=== PATIENT | male | born 1935 | race Caucasian/White ===

== ENCOUNTER 2016-10-10 08:24 | Outpatient (CLI) | payer OTHER ==
[2016-09-04 03:47] VITALS: BMI 26.7
[2016-10-10 13:03] LABS: BASOPHILS # (AUTO) 0.1 K/uL (0-0.2); BASOPHILS % (AUTO) 0.7 % (0.0-3.0); EOSINOPHILS # (AUTO) 0.1 K/ul (0.0-0.7); EOSINOPHILS % (AUTO) 1.5 % (0.0-7.0); HEMATOCRIT 40.6 % (42.0-52.0); HEMOGLOBIN 13.4 g/dl (14.0-18.0); IMMATURE GRANULOCYTE % (AUTO) 0.7 % (0.0-5.0); LYMPHOCYTES # (AUTO) 1.9 K/uL (0.60-3.4); LYMPHOCYTES % (AUTO) 28.1 (10.0-50.0); MEAN CORPUSCULAR HEMOGLOBIN 31.2 pg (27.0-31.0); MEAN CORPUSCULAR VOLUME 94.6 fl (80.0-94.0); MONOCYTES # (AUTO) 0.6 K/uL (0.4-2.0); MONOCYTES % (AUTO) 8.2 (0-10); NEUTROPHILS # (AUTO) 4.2 K/ul (2.0-6.9); NEUTROPHILS % (AUTO) 60.8; PLATELET COUNT 150 10^3/uL (140-440); RED BLOOD COUNT 4.29 10^6/ul (4.70-6.10); WHITE BLOOD COUNT 6.86 K/ul (4.2-10.2)
[2016-10-10 13:09] LABS: BILIRUBIN,URINE Negative (NEGATIVE); KETONES,URINE Negative (NEGATIVE); LEUKOCYTE ESTERASE ,URINE Negative (NEGATIVE); NITRITE,URINE Negative (NEGATIVE); PROTEIN,URINE Trace (NEGATIVE); URINE, BLOOD Negative (NEGATIVE)
[2016-10-10 13:15] LABS: ADD URINE MICROSCOPIC YES
[2016-10-10 13:16] LABS: ALBUMIN 3.7 g/dL (3.4-5.0); ALBUMIN/GLOBULIN RATIO 0.88; ANION GAP 15.6; BILIRUBIN,TOTAL 1.02 mg/dL (0.00-1.20); CHOL/HDL RATIO 5.2 (4.5-6.4); CREATININE 1.9 mg/dL (0.60-1.10); POTASSIUM 4.6 mmol/L (3.5-5.1); TOTAL PROTEIN 7.9 g/dL (5.8-8.1)
== END 2016-10-10 08:25 | disposition home or self-care (01) ==
LOC: LAB 08:24
PROVIDERS: ATTEND General Practice
DX: E11.9 Type 2 diabetes mellitus without complications (principal); I10 Essential (primary) hypertension; I50.9 Heart failure, unspecified; D64.9 Anemia, unspecified; Z79.899 Other long term (current) drug therapy
CPT/HCPCS: 36415; 80053; 80061; 81001; 83036; 85025

== ENCOUNTER 2016-12-08 07:47 | Inpatient (IN) | payer OTHER ==
--- NOTE | 2016-12-08 07:56 | ED.PDOC ---
General ED Provider: Dr. LAZARO QUINONES JR Chief Complaint: Respiratory Complaint Stated Complaint: STATES HE IS MORE SHORT OF BREATH AT NIGHT. STATES HE HAS HAD A "HACKY COUGH" AND WAS TOLD BY HIS KIDNEY DOCTOR THAT IT WAS LISINOPRIL AND THEY CHANGED IT TO [place].[ End ]97.8 58 16 95%. worse lying flat Time Seen by Physician: 07:56 Mode of Arrival: Walk-In Information Source: Patient Exam Limitations: No limitations Primary Care [facility] Nursing and Triage Documentation Reviewed and Agree: No Review of Systems - Review Of Systems Constitutional: Reports: No symptoms Eyes: Reports: No symptoms Ears, Nose, Mouth, Throat: Reports: No symptoms Respiratory: Reports: Cough, Orthopnea Cardiac: Reports: No symptoms, Edema (chronic mild note injury right medial ankle is remote) GI: Reports: No symptoms : Reports: No symptoms Musculoskeletal: Reports: No symptoms Skin: Reports: No symptoms Neurological: Reports: No symptoms Endocrine: Reports: No symptoms Hematologic/Lymphatic: Reports: No symptoms All Other Systems: Other Past Medical History - Past Medical History Previously Healthy: No Endocrine: Reports: Dyslipidemia Cardiovascular: Reports: CAD, Hypertension Respiratory: Reports: None Hematological: Reports: Anemia Gastrointestinal: Reports: GERD Genitourinary: Reports: CKD Neuro/Psych: Reports: None Musculoskeletal: Reports: None Cancer: Reports: None - Surgical History General Surgical History: Reports: None, Other (cataract) - Family History Family History: Reports: None - Social History Smoking Status: Never smoker Hx Substance Use: No Alcohol Screening: None Physical Exam - Physical Exam Appearance: Well-appearing, No pain distress, Well-nourished Ill-appearing: Mild Pain Distress: Mild Eyes: JO, EOMI, Conjunctiva clear ENT: Ears normal, Nose normal, Oropharynx normal Neck: Supple Respiratory: Airway patent, Crackles (rigth >left ) Cardiovascular: RRR, Pulses normal, No rub, No murmur GI/: Soft, Nontender, No masses, Bowel sounds normal, No Organomegaly Musculoskeletal: Normal strength, ROM intact, No edema, No calf tenderness Skin: Warm, Dry, Normal color Neurological: Sensation intact, Motor intact, Reflexes intact, Cranial nerves intact, Alert, Oriented Psychiatric: Affect appropriate, Mood appropriate Physician Notification - Case Discussed Physician Notified: Brittney Time of Notification: 09:56 (admit) Critical Care Note - Critical Care Note Total Time (mins): 0 Course - Course Hematology/Chemistry: 12/08/16 08:45 Orders, Labs, Meds: Lab Review 12/08/16 12/08/16 08:40 08:45 WBC 5.58 RBC 4.43 L Hgb 13.5 L Hct 41.9 L MCV 94.6 H MCH 30.5 MCHC 32.2 RDW Coeff of Anel 14.2 Plt Count 139 L Immature Gran % (Auto) 0.4 Neut % (Auto) 65.0 Lymph % (Auto) 25.1 Yell % (Auto) 7.9 Eos % (Auto) 1.1 Baso % (Auto) 0.5 Immature Gran # (Auto) 0.0 Neut # 3.6 Lymph # 1.4 Yell # 0.4 Eos # 0.1 Baso # 0.0 B-Natriuretic Peptide 1610 H Orders Category Date Time Status ADMIT PATIENT INPATIENT .TO [facility] (MONITORED BED) ADMISSION 12/08/16 09: 59 Active EKG-(ED ONLY) Stat CARDIO 12/08/16 07:54 Completed EKG-(IP & OP ONLY) DAILY CARDIO 12/09/16 06:00 Ordered EKG-(IP & OP ONLY) DAILY CARDIO 12/10/16 06:00 Ordered EKG-(IP & OP ONLY) DAILY CARDIO 12/11/16 06:00 Ordered ACTIVITY .Early Mobilization for VTE Prevention CARE 12/08/16 09:59 Active INTAKE & OUTPUT Q8HR CARE 12/08/16 09:59 Active TELEMETRY MONITORING TELE CARE 12/08/16 10:00 Active VITAL SIGNS Q4HR CARE 12/08/16 09:59 Active CARDIAC DIET DIETARY 12/08/16 Lunch Ordered ED RECREATIONAL ASSISTANT APPLIED .ONCE EMERGENCY 12/08/16 07:54 Active ED IV/MEDIPORT/POWERPORT .ONCE EMERGENCY 12/08/16 09:58 Active B-TYPE NATRIURETIC PEPTIDE Stat LAB 12/08/16 08:40 Completed BLOOD CULTURE Stat LAB 12/08/16 07:55 Ordered BLOOD CULTURE Stat LAB 12/08/16 09:58 Ordered CBC W/ AUTO DIFF DAILY@0600 LAB 12/09/16 06:00 Ordered CBC W/ AUTO DIFF DAILY@0600 LAB 12/10/16 06:00 Ordered CBC W/ AUTO DIFF DAILY@0600 LAB 12/11/16 06:00 Ordered CBC W/ AUTO DIFF DAILY@0600 LAB 12/12/16 06:00 Ordered CBC W/ AUTO DIFF DAILY@0600 LAB 12/13/16 06:00 Ordered CBC W/ AUTO DIFF DAILY@0600 LAB 12/14/16 06:00 Ordered CBC W/ AUTO DIFF DAILY@0600 LAB 12/15/16 06:00 Ordered CBC W/ AUTO DIFF DAILY@0600 LAB 12/16/16 06:00 Ordered CBC W/ AUTO DIFF DAILY@0600 LAB 12/17/16 06:00 Ordered CBC W/ AUTO DIFF DAILY@0600 LAB 12/18/16 06:00 Ordered CBC W/ AUTO DIFF DAILY@0600 LAB 12/19/16 06:00 Ordered CBC W/ AUTO DIFF DAILY@0600 LAB 12/20/16 06:00 Ordered CBC W/ AUTO DIFF DAILY@0600 LAB 12/21/16 06:00 Ordered CBC W/ AUTO DIFF DAILY@0600 LAB 12/22/16 06:00 Ordered CBC W/ AUTO DIFF DAILY@0600 LAB 12/23/16 06:00 Ordered CBC W/ AUTO DIFF DAILY@0600 LAB 12/24/16 06:00 Ordered CBC W/ AUTO DIFF DAILY@0600 LAB 12/25/16 06:00 Ordered CBC W/ AUTO DIFF DAILY@0600 LAB 12/26/16 06:00 Ordered CBC W/ AUTO DIFF DAILY@0600 LAB 12/27/16 06:00 Ordered CBC W/ AUTO DIFF DAILY@0600 LAB 12/28/16 06:00 Ordered CBC W/ AUTO DIFF Stat LAB 12/08/16 08:45 Completed COMPREHENSIVE METABOLIC PANEL Stat LAB 12/08/16 08:40 Received CREATINE KINASE Q8H LAB 12/08/16 16:15 Ordered CREATINE KINASE Q8H LAB 12/09/16 00:15 Ordered CREATINE KINASE Stat LAB 12/08/16 08:40 Received D-DIMER Stat LAB 12/08/16 Ordered SPUTUM CULTURE Stat LAB 12/08/16 09:58 Uncollected TROPONIN I Q8H LAB 12/08/16 16:15 Ordered TROPONIN I Q8H LAB 12/09/16 00:15 Ordered TROPONIN I Stat LAB 12/08/16 08:40 Received 0.9 % Sodium Chloride [Saline Flush] MEDS 12/08/16 09:58 Ordered 1 syr IVF PRN PRN Acetaminophen [Tylenol] MEDS 12/08/16 09:59 Ordered 650 mg PO Q4H PRN Ceftriaxone Sodium [Rocephin] 1 gm MEDS 12/08/16 09:58 Active 0.9 % Sodium Chloride [Sodium Chloride] 100 ml IV ONCE Ceftriaxone Sodium [Rocephin] 1 gm MEDS 12/09/16 09:00 Ordered 0.9 % Sodium Chloride [Sodium Chloride] 50 ml IV DAILY Sodium Chloride 0.9% [Sodium Chloride] 1,000 ml MEDS 12/08/16 10:00 Ordered IV 75 mls/hr Spironolactone [Aldactone] MEDS 12/08/16 09:58 Discontinued 25 mg PO ONCE STA RESUSCITATION STATUS Routine OTHERS 12/08/16 09:59 Ordered CHEST, 2 VIEWS PA & LAT Stat RADS 12/08/16 07:55 Completed Medications Generic Name Dose Route Start Last Admin Trade Name Freq PRN Reason Stop Dose Admin Acetaminophen 650 mg 12/08/16 09:59 Tylenol PO Q4H PRN Mild Pain Ceftriaxone Sodium 1 gm/ 100 mls @ 100 mls/hr 12/08/16 09:58 Sodium Chloride IV 12/08/16 10:57 ONCE STA Ceftriaxone Sodium 1 gm/ 50 mls @ 75 mls/hr 12/09/16 09:00 Sodium Chloride IV DAILY MERY Sodium Chloride 1,000 mls @ 75 mls/hr 12/08/16 10:00 Sodium Chloride IV .[id number] MERY Sodium Chloride 1 syr 12/08/16 09:58 Saline Flush IVF PRN PRN To flush IV Discontinued Medications Generic Name Dose Route Start Last Admin Trade Name Freq PRN Reason Stop Dose Admin Spironolactone 25 mg 12/08/16 09:58 Aldactone PO 12/08/16 09:59 ONCE STA Vital Signs: Temp Pulse Resp BP Pulse Ox 12/08/16 07:47 97.8 F 58 L 16 112/80 95 Departure - Departure Time of Disposition: 10:03 Disposition: ADMITTED INPATIENT Discharge Problem: Stage 2 chronic kidney disease, Orthopnea Pneumonia Qualifiers: Pneumonia type: due to unspecified organism Laterality: right Lung location: lower lobe of lung Qualifier Code: (J18.1) Lobar pneumonia, unspecified organism Congestive heart failure Qualifiers: Congestive heart failure type: unspecified congestive heart failure type Congestive heart failure chronicity: chronic Qualifier Code: (I50.9) Heart failure, unspecified Condition: Stable Pt referred to PMD for follow-up: Yes Allergies/Adverse Reactions: Allergies No Known Allergies Allergy (Verified 09/04/16 03:44) Home Medications: Ambulatory Orders Cyanocobalamin/Folic Acid [Vitamin A90-Vfcev Acid Tablet] 1 each PO DAILY Ergocalciferol (Vitamin D2) [Vitamin D2] 50,000 unit PO MONTHLY 10/23/13 Apixaban [Eliquis] 5 mg PO BID 09/04/16 Hydrochlorothiazide 12.5 mg PO DAILY 09/04/16 Aspirin 81 mg PO ONCE 10/17/16 Losartan Potassium 100 mg PO DAILY 12/08/16
--- NOTE | 2016-12-08 08:29 | DI ---
Examination: Three radiographic images of the chest. Comparison: None available. Reason for study: Cough. FINDINGS: Developing air space opacities in the right lower lobe. No pneumothorax. The cardiac si lhouette is not enlarged. Layering density in the right lung bases consistent with a small pleural effusion. Impression: Imaging findings are consistent with a right-sided pneumonia and a small pleural effusi on.
[2016-12-08 09:08] LABS: BASOPHILS % (AUTO) 0.5 % (0.0-3.0); EOSINOPHILS # (AUTO) 0.1 K/ul (0.0-0.7); EOSINOPHILS % (AUTO) 1.1 % (0.0-7.0); HEMATOCRIT 41.9 % (42.0-52.0); HEMOGLOBIN 13.5 g/dl (14.0-18.0); IMMATURE GRANULOCYTE % (AUTO) 0.4 % (0.0-5.0); LYMPHOCYTES # (AUTO) 1.4 K/uL (0.60-3.4); LYMPHOCYTES % (AUTO) 25.1 (10.0-50.0); MEAN CORPUSCULAR HEMOGLOBIN 30.5 pg (27.0-31.0); MEAN CORPUSCULAR HGB CONC 32.2 (31.8-35.4); MEAN CORPUSCULAR VOLUME 94.6 fl (80.0-94.0); MONOCYTES # (AUTO) 0.4 K/uL (0.4-2.0); MONOCYTES % (AUTO) 7.9 (0-10); NEUTROPHILS # (AUTO) 3.6 K/ul (2.0-6.9); PLATELET COUNT 139 10^3/uL (140-440); RED BLOOD COUNT 4.43 10^6/ul (4.70-6.10); WHITE BLOOD COUNT 5.58 K/ul (4.2-10.2)
[2016-12-08 09:54] LABS: ALBUMIN 3.9 g/dL (3.4-5.0); ALBUMIN/GLOBULIN RATIO 0.98; ANION GAP 15.1; BILIRUBIN,TOTAL 0.74 mg/dL (0.00-1.20); BUN/CREATININE RATIO 11.47; CALCIUM 9.9 mg/dL (8.2-10.2); CREATININE 2.44 mg/dL (0.60-1.10); POTASSIUM 4.1 mmol/L (3.5-5.1); TOTAL PROTEIN 7.9 g/dL (5.8-8.1); TROPONIN I 0.117 ng/ml (0.0000-0.4000)
[2016-12-08] MEDS ORDERED: ROCEPHIN 1 GM in SODIUM CHLORIDE 100 ML IV STA (09:58)
[2016-12-08] MEDS ORDERED: ALDACTONE PO STA (09:58)
[2016-12-08] MEDS ORDERED: TYLENOL PO PRN (09:59)
[2016-12-08] MEDS ORDERED: SODIUM CHLORIDE 1,000 ML IV SCH (10:00)
[2016-12-08 10:08] LABS: CREATINE KINASE MB 6.1 ng/ml (0.0-3.6)
[2016-12-08] MEDS ORDERED: ROCEPHIN ONE (10:12)
[2016-12-08 11:41] VITALS: BMI 26.2
[2016-12-08] MEDS ORDERED: NON-FORMULARY MEDICATION (Fluticasone Propionate [Flonase Allergy Relief] 9.9 ML) NS PRN (12:43)
[2016-12-08] MEDS ORDERED: NON-FORMULARY MEDICATION (Hydrochlorothiazide [Hydrochlorothiazide] 12.5 MG) PO SCH ×22 (12:45)
[2016-12-08] MEDS ORDERED: NON-FORMULARY MEDICATION (Amlodipine Besylate [Amlodipine Besylate] 2.5 MG) PO SCH ×22 (12:45)
[2016-12-08] MEDS ORDERED: NON-FORMULARY MEDICATION (Losartan Potassium [Losartan Potassium] 100 MG) PO SCH ×22 (12:45)
[2016-12-08] MEDS ORDERED: ASPIRIN CHEWABLE PO SCH (13:00)
[2016-12-08] MEDS ORDERED: LASIX IVP STA (13:23)
[2016-12-08] MEDS ORDERED: DECADRON 4 MG/ML SDV IM STA (13:23)
[2016-12-08] MEDS: TRADJENTA PO SCH (14:04)
[2016-12-08] MEDS: POTASSIUM CHLORIDE 20 MEQ VIAL-ADDITIVE ONLY 20 MEQ, INFUVITE ADULT 10 ML in SODIUM CHL... IV SCH (14:34)
[2016-12-08] MEDS: NORVASC PO SCH (14:34)
[2016-12-08] MEDS: ASPIRIN CHEWABLE PO SCH (14:36)
[2016-12-08] MEDS ORDERED: COZAAR PO ONE (14:48)
[2016-12-08 16:22] LABS: TROPONIN I 0.111 ng/ml (0.0000-0.4000)
[2016-12-08 16:23] LABS: CREATINE KINASE MB 4.7 ng/ml (0.0-3.6)
--- NOTE | 2016-12-08 16:39 | CT ---
EXAM: CT chest without contrast HISTORY: Abnormal chest radiograph COMPARISON: Chest radiograph 12/08/2016 TECHNIQUE: CT chest performed without intravenous contrast. Coronal and sagittal reformatted image s obtained FINDINGS: Thyroid and thoracic inlet appear normal. Heart is moderately enlarged. There are coron cookie calcifications. No pericardial effusion. Aorta normal in caliber. Atherosclerosis. Small hia josh hernia. Evaluation for lymphadenopathy limited without contrast. No lymphadenopathy identified . There is left renal atrophy. Visualized portion upper abdomen demonstrates no acute abnormality. No acute abnormalities of the bones. Degenerative change in the spine. Central airway patent. S mall to moderate bilateral pleural effusions, right greater than left. There are bibasilar ground-g lass infiltrates and atelectasis seen in the right middle lobe, lingula and bilateral lower lobes. IMPRESSION: 1. Cardiomegaly. Small to moderate bilateral pleural effusions. Bibasilar ground-glass infiltrate s may represent pneumonia and/or dependent edema. 2. Left renal atrophy.
[2016-12-08] MEDS: ELIQUIS PO SCH (20:56)
[2016-12-08] MEDS: FLONASE NAS SCH (20:56)
[2016-12-09 01:11] LABS: TROPONIN I 0.106 ng/ml (0.0000-0.4000)
[2016-12-09] MEDS ORDERED: INFUVITE ADULT IV ONE (01:11)
[2016-12-09] MEDS ORDERED: POTASSIUM CHLORIDE 20 MEQ VIAL-ADDITIVE ONLY IV ONE (01:11)
[2016-12-09] MEDS: POTASSIUM CHLORIDE 20 MEQ VIAL-ADDITIVE ONLY 20 MEQ, INFUVITE ADULT 10 ML in SODIUM CHL... IV SCH ×2 (01:52→15:18)
[2016-12-09 05:06] LABS: BASOPHILS % (AUTO) 0.3 % (0.0-3.0); EOSINOPHILS % (AUTO) 0.1 % (0.0-7.0); HEMATOCRIT 40.3 % (42.0-52.0); HEMOGLOBIN 13.3 g/dl (14.0-18.0); IMMATURE GRANULOCYTE % (AUTO) 0.3 % (0.0-5.0); LYMPHOCYTES # (AUTO) 1.8 K/uL (0.60-3.4); LYMPHOCYTES % (AUTO) 25.8 (10.0-50.0); MEAN CORPUSCULAR HEMOGLOBIN 30.9 pg (27.0-31.0); MEAN CORPUSCULAR VOLUME 93.7 fl (80.0-94.0); MONOCYTES # (AUTO) 0.6 K/uL (0.4-2.0); MONOCYTES % (AUTO) 8.1 (0-10); NEUTROPHILS # (AUTO) 4.6 K/ul (2.0-6.9); NEUTROPHILS % (AUTO) 65.4; PLATELET COUNT 132 10^3/uL (140-440); WHITE BLOOD COUNT 7.08 K/ul (4.2-10.2)
[2016-12-09 05:26] LABS: CHOL/HDL RATIO 4.2 (4.5-6.4)
[2016-12-09] MEDS: TRADJENTA PO SCH (06:51)
--- NOTE | 2016-12-09 07:54 | ECHO2D ---
Date of Exam: 12/08/16 Ordering Physician: SANDRA Reason for Echo: CHF, CHEST PAIN, R/O OH, PNEUMONIA M-Mode Normal Adult Results LV Dimensions Normal Adult Results AoV Opening excursions >1.6 >1.6 LVEDD-base- 3.5-5.8 5.6 Ao root dimensions 2.0-3.7 3.4 LVESD-base- 3.1-4.6 L. Atrium dimensions 1.9-3.8 5.6 Post. Wall thickness 0.8-1.1 1.2 IV septum (thickness) 0.7-1.2 1.2 Post. Wall excursion 0.72-1.3 0.7 Septal motion 0.7 Systolic motion R. Ventricular cavity 1.5-2.0 NORMAL LVEF 60% 40 TO 45% Paradoxical septal wall motion NORMAL 2-D : MARKEDLY ENLARGED LEFT ATRIAL CAVITY--BORDERLINE ENLARGED LEFT VENTRICLE CAVITY--HYPOKINETIC LEFT VENTRICLE, NO EFFUSION, NO THROMBUS, VALVES NORMAL M-MODE: MV: CALCIFIC MITRAL VALVE ANNULUS AV: NORMAL TV: NORMAL PV: CHAMBER SIZE: ENLARGED LEFT ATRIAL CAVITY/BORDERLINE LEFT VENTRICLE CAVITY WALL MOTION: HYPOKINETIC LEFT VENTRICLE PERICARDIUM: NORMAL INTERPRETATION: 1. LEFT VENTRICULAR HYPERTROPHY 2. MARKEDLY ENLARGED LEFT ATRIAL CAVITY 3. BORDERLINE LEFT VENTRICLE CAVITY SIZE 4. CALCIFIC MITRAL VALVE ANNULUS 5. HYPOKINETIC LEFT VENTRICLE WITH EJECTION FRACTION 40 TO 45% MTDD
[2016-12-09] MEDS ORDERED: ASPIRIN CHEWABLE PO SCH (08:00)
[2016-12-09] MEDS ORDERED: DECADRON 4 MG/ML SDV IM STA (08:31)
[2016-12-09] MEDS: ASPIRIN CHEWABLE PO SCH (08:43)
[2016-12-09] MEDS: COZAAR PO SCH (08:44)
[2016-12-09] MEDS: ELIQUIS PO SCH ×2 (08:44→20:04)
[2016-12-09] MEDS: NORVASC PO SCH (08:44)
[2016-12-09] MEDS: FOLIC ACID PO SCH (08:45)
[2016-12-09] MEDS: ROCEPHIN 1 GM in SODIUM CHLORIDE 100 ML IV SCH (08:45)
[2016-12-09] MEDS: [UNRECOGNIZED DRUG - OTHER] PO SCH (08:45)
[2016-12-09] MEDS: CYANOCOBALAMIN PO SCH (08:45)
[2016-12-09] MEDS ORDERED: COZAAR PO SCH (09:00)
[2016-12-09] MEDS ORDERED: HYDROCHLOROTHIAZIDE PO SCH (09:00)
[2016-12-09] MEDS ORDERED: NORVASC PO SCH (09:00)
[2016-12-09] MEDS: FLONASE NAS SCH ×2 (09:24→20:04)
[2016-12-09] MEDS: LASIX TAB PO SCH (09:24)
--- NOTE | 2016-12-09 09:41 | PCM.CONS ---
CONSULTING PROVIDER: Dr. ROLANDO LAZO ATTENDING PROVIDER: Dr. SANTOS [facility] DATE OF SERVICE: 12/09/16 - CONSULTATION FOLLOWUP SUBJECTIVE: This 81 year old WHITE/ M was hospitalized 12/08/16. The patient is seen in consultation for pneumonia and possible CHF/left ventricular failure. Clinically he looks better, rhythm is better with atrial flutter and normal ventricular response. The patient's other problem is chronic renal failure. Echocardiogram showed LVH with hypokinetic left ventricle with ejection fraction 45% with enlarged LA cavity. REVIEW OF SYSTEMS: CONSTITUTIONAL: The patient's is in the room and says he is feeling a lot better. No night sweats. No fatigue, malaise, lethargy. No fever or chills. HEENT: Eyes: No visual changes. No eye pain. No eye discharge. ENT: No runny nose. No epistaxis. No sinus pain. No odynophagia. No congestion. RESPIRATORY: No cough, no congestion. No hemoptysis. CARDIOVASCULAR: No angina symptoms. No CHF symptoms. No atypical chest pain for CAD. No palpitations. No shortness of breath. GASTROINTESTINAL: No abdominal pain. No nausea or vomiting. No diarrhea or constipation. No hematemesis. No hematochezia. GENITOURINARY: No urgency. No frequency. No dysuria. No hematuria. No obstructive symptoms. No discharge. No pain. No significant abnormal bleeding. MUSCULOSKELETAL: No musculoskeletal pain; no joint swelling. NEUROLOGICAL: Awake, alert, oriented to time, place and person. No headache. No neck pain. No syncope. No seizures. No dizziness. PSYCHIATRIC: Not anxious. No depression. No suicidal thoughts. No homicidal thoughts. SKIN: No rash. No lesions. No wounds. ENDOCRINE: No unexplained weight loss. No weight gain. HEMATOLOGIC/LYMPHATIC: No anemia. No purpura. No petechiae. No prolonged or excessive bleeding. No palpable lymph nodes. PHYSICAL EXAMINATION: GENERAL: The patient is awake, alert and oriented, lying in bed in no distress. VITAL SIGNS: Temperature 96.5 F, Pulse 74, Respiratory Rate 16, BP 145/90, Pulse Ox 94% HEENT: Head normocephalic, atraumatic. Eyes: Extraocular muscles are intact. Pupils are equal, round and reactive to light and accommodation. Ears: No lesions. Nose appeared normal. Throat: No exudate or erythema. NECK: Supple. No JVD, no carotid bruit. No lymphadenopathy or thyromegaly. LUNGS: Decreased breath sounds. Clear to auscultation. Percussion note normal. Chest symmetrical. HEART: S1, S2, no S3. No murmurs. No cyanosis or clubbing. No ascites. Pulses: Dorsalis pedis and posterior tibial pulses +1 to +2 both sides. ABDOMEN: Soft. Non-tender. Bowel sounds active. No CVA tenderness. No mass felt. EXTREMITIES: No edema. Full range of motion of all extremities, equal. NEUROLOGIC: No focal deficit. Cranial nerves II through XII are grossly intact. No headache, no double vision or headache. SKIN: Not dry. Intact. Turgor-normal. LYMPHATIC: No palpable lymph nodes/no lymphedema. MUSCULOSKELETAL: Normal joints with no swelling. Muscle tone is normal. LAB REVIEW: 12/09/16 04:45 12/09/16 04:45: WBC 7.08, RBC 4.30 L, Hgb 13.3 L, Hct 40.3 L, MCV 93.7, MCH 30.9 , MCHC 33.0, RDW Coeff of Anel 14.3, Plt Count 132 L, Immature Gran % (Auto) 0.3 , Neut % (Auto) 65.4, Lymph % (Auto) 25.8, Woods % (Auto) 8.1, Eos % (Auto) 0.1, Baso % (Auto) 0.3, Immature Gran # (Auto) 0.0, Neut # 4.6, Lymph # 1.8, Woods # 0.6, Eos # 0.0, Baso # 0.0, Triglycerides 87, Cholesterol 138, LDL Cholesterol, Calc 88, VLDL Cholesterol 17, HDL Cholesterol 33 L, Cholesterol/HDL Ratio 4.2 L 12/09/16 00:12: Total Creatine Kinase 172, CK-MB (CK-2) 5.0 H, CK-MB (CK-2) % 2.90214, Troponin I 0.1060 12/08/16 19:55: Procalcitonin < 0.05 12/08/16 15:37: Total Creatine Kinase 207, CK-MB (CK-2) 4.7 H, CK-MB (CK-2) % 2.32279, Troponin I 0.1110 ASSESSMENT: 1. Cardiac rhythm stable with atrial flutter with occasional PVC, possible LVF 2. Chronic lung disease 3. Bronchitis/pneumonia RECOMMENDATIONS/PLAN: 1. Continue same treatment and medications 2. Lasix 20 mg p.o. daily 3. 1/2 cc Decadron for coughing Plan and coordination of the patient's care discussed in the presence of Medical Accounting Clerk and Nurse. CONDITION: Stable SCRIBED BY: MARIBELL SHARP T Rail [employer] scribed while in presence of service performed by Dr. ROLANDO LAZO on 12/09/16 ([id number])
--- NOTE | 2016-12-09 10:54 | US ---
EXAM: Bilateral lower extremity venous Doppler History: Bilateral lower extremity edema. Technique: Multiple sonographic images through the bilateral lower extremities were obtained. [place] r duplex Doppler was used to interrogate vascular flow. Findings: The bilateral common femoral, greater saphenous, profunda, superficial femoral, popliteal, peroneal, posterior tibial and anterior tibial veins demonstrate spontaneous flow with normal compr ession and normal augmentation. Right greater than left bilateral lower extremity subcutaneous nabil a Impression: No sonographic evidence for deep venous thrombosis. Right greater than left bilateral l ower extremity subcutaneous edema.
[2016-12-09 12:36] LABS: ALBUMIN 3.7 g/dL (3.4-5.0); ALBUMIN/GLOBULIN RATIO 0.97; BILIRUBIN,TOTAL 0.46 mg/dL (0.00-1.20); BUN/CREATININE RATIO 12.6; CALCIUM 9.6 mg/dL (8.2-10.2); CREATININE 2.46 mg/dL (0.60-1.10); TOTAL PROTEIN 7.5 g/dL (5.8-8.1)
[2016-12-10] MEDS ORDERED: INFUVITE ADULT IV ONE ×2 (02:16→15:29)
[2016-12-10] MEDS ORDERED: POTASSIUM CHLORIDE 20 MEQ VIAL-ADDITIVE ONLY IV ONE ×2 (02:17→15:29)
[2016-12-10] MEDS: POTASSIUM CHLORIDE 20 MEQ VIAL-ADDITIVE ONLY 20 MEQ, INFUVITE ADULT 10 ML in SODIUM CHL... IV SCH ×2 (02:30→15:34)
[2016-12-10 05:20] LABS: BASOPHILS % (AUTO) 0.2 % (0.0-3.0); EOSINOPHILS % (AUTO) 0.5 % (0.0-7.0); HEMATOCRIT 41.3 % (42.0-52.0); HEMOGLOBIN 13.5 g/dl (14.0-18.0); IMMATURE GRANULOCYTE % (AUTO) 0.4 % (0.0-5.0); LYMPHOCYTES % (AUTO) 24.9 (10.0-50.0); MEAN CORPUSCULAR HEMOGLOBIN 30.8 pg (27.0-31.0); MEAN CORPUSCULAR HGB CONC 32.7 (31.8-35.4); MEAN CORPUSCULAR VOLUME 94.3 fl (80.0-94.0); MONOCYTES # (AUTO) 0.5 K/uL (0.4-2.0); MONOCYTES % (AUTO) 6.6 (0-10); NEUTROPHILS # (AUTO) 5.5 K/ul (2.0-6.9); NEUTROPHILS % (AUTO) 67.4; PLATELET COUNT 143 10^3/uL (140-440); RED BLOOD COUNT 4.38 10^6/ul (4.70-6.10); WHITE BLOOD COUNT 8.16 K/ul (4.2-10.2)
[2016-12-10] MEDS: LASIX TAB PO SCH (05:31)
[2016-12-10] MEDS: TRADJENTA PO SCH (05:31)
[2016-12-10 06:10] LABS: POTASSIUM 4.7 mmol/L (3.5-5.1)
[2016-12-10 06:11] LABS: ALBUMIN/GLOBULIN RATIO 1.11; BILIRUBIN,TOTAL 0.8 mg/dL (0.00-1.20); BUN/CREATININE RATIO 15.23; CALCIUM 9.8 mg/dL (8.2-10.2); CREATININE 2.1 mg/dL (0.60-1.10); TOTAL PROTEIN 7.6 g/dL (5.8-8.1)
[2016-12-10] MEDS: ROCEPHIN 1 GM in SODIUM CHLORIDE 100 ML IV SCH (08:25)
[2016-12-10] MEDS: FLONASE NAS SCH ×2 (08:25→20:16)
[2016-12-10] MEDS: ELIQUIS PO SCH ×2 (08:26→20:16)
[2016-12-10] MEDS: ASPIRIN CHEWABLE PO SCH (08:26)
[2016-12-10] MEDS: NORVASC PO SCH (08:26)
[2016-12-10] MEDS: COZAAR PO SCH (08:26)
[2016-12-10] MEDS: CYANOCOBALAMIN PO SCH (08:31)
[2016-12-10] MEDS: [UNRECOGNIZED DRUG - OTHER] PO SCH (08:31)
[2016-12-10] MEDS: FOLIC ACID PO SCH (08:31)
[2016-12-11] MEDS ORDERED: POTASSIUM CHLORIDE 20 MEQ VIAL-ADDITIVE ONLY IV ONE ×2 (03:53→16:40)
[2016-12-11] MEDS ORDERED: INFUVITE ADULT IV ONE ×2 (03:53→16:40)
[2016-12-11] MEDS: POTASSIUM CHLORIDE 20 MEQ VIAL-ADDITIVE ONLY 20 MEQ, INFUVITE ADULT 10 ML in SODIUM CHL... IV SCH ×2 (04:00→17:23)
[2016-12-11 05:17] LABS: BASOPHILS % (AUTO) 0.5 % (0.0-3.0); EOSINOPHILS # (AUTO) 0.2 K/ul (0.0-0.7); EOSINOPHILS % (AUTO) 2.8 % (0.0-7.0); HEMATOCRIT 41.2 % (42.0-52.0); HEMOGLOBIN 13.3 g/dl (14.0-18.0); IMMATURE GRANULOCYTE % (AUTO) 0.7 % (0.0-5.0); LYMPHOCYTES # (AUTO) 1.9 K/uL (0.60-3.4); LYMPHOCYTES % (AUTO) 25.1 (10.0-50.0); MEAN CORPUSCULAR HEMOGLOBIN 30.5 pg (27.0-31.0); MEAN CORPUSCULAR HGB CONC 32.3 (31.8-35.4); MEAN CORPUSCULAR VOLUME 94.5 fl (80.0-94.0); MONOCYTES # (AUTO) 0.6 K/uL (0.4-2.0); MONOCYTES % (AUTO) 7.6 (0-10); NEUTROPHILS # (AUTO) 4.8 K/ul (2.0-6.9); NEUTROPHILS % (AUTO) 63.3; PLATELET COUNT 116 10^3/uL (140-440); RED BLOOD COUNT 4.36 10^6/ul (4.70-6.10)
[2016-12-11] MEDS: TRADJENTA PO SCH (05:35)
[2016-12-11 05:36] LABS: ALBUMIN 3.6 g/dL (3.4-5.0); ANION GAP 15.7; BILIRUBIN,TOTAL 0.67 mg/dL (0.00-1.20); CALCIUM 9.8 mg/dL (8.2-10.2); CREATININE 2.2 mg/dL (0.60-1.10); POTASSIUM 4.7 mmol/L (3.5-5.1); TOTAL PROTEIN 7.2 g/dL (5.8-8.1)
[2016-12-11] MEDS: LASIX TAB PO SCH (05:36)
[2016-12-11] MEDS: ROCEPHIN 1 GM in SODIUM CHLORIDE 100 ML IV SCH (08:20)
[2016-12-11] MEDS: NORVASC PO SCH (08:21)
[2016-12-11] MEDS: FLONASE NAS SCH ×2 (08:21→21:10)
[2016-12-11] MEDS: ELIQUIS PO SCH ×2 (08:21→21:10)
[2016-12-11] MEDS: ASPIRIN CHEWABLE PO SCH (08:22)
[2016-12-11] MEDS: COZAAR PO SCH (08:22)
[2016-12-11] MEDS: CYANOCOBALAMIN PO SCH (08:23)
[2016-12-11] MEDS: FOLIC ACID PO SCH (08:23)
[2016-12-11] MEDS: [UNRECOGNIZED DRUG - OTHER] PO SCH (08:23)
[2016-12-12 04:28] LABS: BASOPHILS % (AUTO) 0.6 % (0.0-3.0); EOSINOPHILS # (AUTO) 0.2 K/ul (0.0-0.7); EOSINOPHILS % (AUTO) 2.8 % (0.0-7.0); HEMOGLOBIN 13.1 g/dl (14.0-18.0); IMMATURE GRANULOCYTE % (AUTO) 0.6 % (0.0-5.0); LYMPHOCYTES % (AUTO) 29.3 (10.0-50.0); MEAN CORPUSCULAR HEMOGLOBIN 30.8 pg (27.0-31.0); MEAN CORPUSCULAR HGB CONC 32.8 (31.8-35.4); MEAN CORPUSCULAR VOLUME 94.1 fl (80.0-94.0); MONOCYTES # (AUTO) 0.6 K/uL (0.4-2.0); MONOCYTES % (AUTO) 8.3 (0-10); NEUTROPHILS % (AUTO) 58.4; PLATELET COUNT 127 10^3/uL (140-440); RED BLOOD COUNT 4.25 10^6/ul (4.70-6.10); WHITE BLOOD COUNT 6.76 K/ul (4.2-10.2)
[2016-12-12 04:49] LABS: ALBUMIN 3.4 g/dL (3.4-5.0); ANION GAP 13.4; BILIRUBIN,TOTAL 0.67 mg/dL (0.00-1.20); BUN/CREATININE RATIO 14.48; CALCIUM 9.5 mg/dL (8.2-10.2); CREATININE 2.14 mg/dL (0.60-1.10); POTASSIUM 4.4 mmol/L (3.5-5.1); TOTAL PROTEIN 6.8 g/dL (5.8-8.1)
[2016-12-12] MEDS ORDERED: POTASSIUM CHLORIDE 20 MEQ VIAL-ADDITIVE ONLY IV ONE (05:26)
[2016-12-12] MEDS ORDERED: INFUVITE ADULT IV ONE (05:26)
[2016-12-12] MEDS: POTASSIUM CHLORIDE 20 MEQ VIAL-ADDITIVE ONLY 20 MEQ, INFUVITE ADULT 10 ML in SODIUM CHL... IV SCH ×2 (05:32→18:29)
[2016-12-12] MEDS: TRADJENTA PO SCH (05:32)
[2016-12-12] MEDS: LASIX TAB PO SCH (05:33)
[2016-12-12] MEDS: ASPIRIN CHEWABLE PO SCH (08:28)
[2016-12-12] MEDS: ENTRESTO 24 MG-26 MG TABLET PO SCH ×2 (08:28→20:29)
[2016-12-12] MEDS: NORVASC PO SCH (08:28)
[2016-12-12] MEDS: ROCEPHIN 1 GM in SODIUM CHLORIDE 100 ML IV SCH (08:28)
[2016-12-12] MEDS: ELIQUIS PO SCH ×2 (08:29→20:29)
[2016-12-12] MEDS: FOLIC ACID PO SCH (09:11)
[2016-12-12] MEDS: CYANOCOBALAMIN PO SCH (09:11)
[2016-12-12] MEDS: [UNRECOGNIZED DRUG - OTHER] PO SCH (09:11)
[2016-12-12] MEDS: FLONASE NAS SCH ×2 (09:11→20:29)
--- NOTE | 2016-12-12 11:27 | PCM.CONS ---
CONSULTING PROVIDER: Dr. ROLANDO LAZO ATTENDING PROVIDER: [facility]. SANTOS [facility] DATE OF SERVICE: 12/12/16 SUBJECTIVE: This 81 year old WHITE/ M was hospitalized 12/08/16. The patient is hospitalized with pneumonia, bronchitis and CHF. The patient also has atrial flutter with PVCs, frequent at times but last couple of days rhythm more stable. The patient is reported having a 9 beat run of Vtach and will check on that. REVIEW OF SYSTEMS: CONSTITUTIONAL: No night sweats. No fatigue, malaise, lethargy. No fever or chills. HEENT: Eyes: No visual changes. No eye pain. No eye discharge. ENT: No runny nose. No epistaxis. No sinus pain. No odynophagia. No congestion. RESPIRATORY: No cough, no congestion. No hemoptysis. CARDIOVASCULAR: No angina symptoms. No CHF symptoms. No atypical chest pain for CAD. No palpitations. No shortness of breath. GASTROINTESTINAL: No abdominal pain. No nausea or vomiting. No diarrhea or constipation. No hematemesis. No hematochezia. GENITOURINARY: No urgency. No frequency. No dysuria. No hematuria. No obstructive symptoms. No discharge. No pain. No significant abnormal bleeding. MUSCULOSKELETAL: No musculoskeletal pain; no joint swelling. NEUROLOGICAL: Awake, alert, oriented to time, place and person. No headache. No neck pain. No syncope. No seizures. No dizziness. PSYCHIATRIC: Not anxious. No depression. No suicidal thoughts. No homicidal thoughts. SKIN: No rash. No lesions. No wounds. ENDOCRINE: No unexplained weight loss. No weight gain. HEMATOLOGIC/LYMPHATIC: No anemia. No purpura. No petechiae. No prolonged or excessive bleeding. No palpable lymph nodes. PHYSICAL EXAMINATION: GENERAL: The patient is awake, alert and oriented, lying/sitting in bed in no distress. VITAL SIGNS: Temperature 98.0 F, Pulse 63, Respiratory Rate 16, BP 118/64, Pulse Ox 99% HEENT: Head normocephalic, atraumatic. Eyes: Extraocular muscles are intact. Pupils are equal, round and reactive to light and accommodation. Ears: No lesions. Nose appeared normal. Throat: No exudate or erythema. NECK: Supple. No JVD, no carotid bruit. No lymphadenopathy or thyromegaly. LUNGS: Decreased breath sounds. Clear to auscultation. Percussion note normal. Chest symmetrical. HEART: S1, S2, no S3. Heart sounds are good and regular. No murmurs. No cyanosis or clubbing. No ascites. Pulses: Dorsalis pedis and posterior tibial pulses +1 to +2 both sides. ABDOMEN: Soft. Non-tender. Bowel sounds active. No CVA tenderness. No mass felt. EXTREMITIES: Trace edema noted. Full range of motion of all extremities, equal. NEUROLOGIC: No focal deficit. Cranial nerves II through XII are grossly intact. No headache, no double vision or headache. SKIN: Not dry. Intact. Turgor-normal. LYMPHATIC: No palpable lymph nodes/no lymphedema. MUSCULOSKELETAL: Normal joints with no swelling. Muscle tone is normal. LAB REVIEW: 12/12/16 04:25 12/12/16 04:25 12/12/16 04:25: WBC 6.76, RBC 4.25 L, Hgb 13.1 L, Hct 40.0 L, MCV 94.1 H, MCH 30.8, MCHC 32.8, RDW Coeff of Anel 14.2, Plt Count 127 L, Immature Gran % (Auto) 0.6, Neut % (Auto) 58.4, Lymph % (Auto) 29.3, Spencer % (Auto) 8.3, Eos % (Auto) 2.8, Baso % (Auto) 0.6, Immature Gran # (Auto) 0.0, Neut # 4.0, Lymph # 2.0, Spencer # 0.6, Eos # 0.2, Baso # 0.0, Sodium 141, Potassium 4.4, Chloride 110 H, Carbon Dioxide 22 L, Anion Gap 13.4, BUN 31 H, Creatinine 2.14 H, Estimated GFR (MDRD) 30.00, BUN/Creatinine Ratio 14.48, Glucose 153 H, Calcium 9.5, Total Bilirubin 0.67, AST 30, ALT 48, Alkaline Phosphatase 74, Total Protein 6.8, Albumin 3.4, Globulin 3.4, Albumin/Globulin Ratio 1.00 ASSESSMENT: 1. Atrial flutter fib, controlled rate 2. CHF controlled 3. Pneumonia/bronchitis controlled RECOMMENDATIONS/PLAN: 1. Continue same medications. Thanks for referral, may need Holter Monitor every 6 months. Ejection fraction 40 to 45%. Plan and coordination of the patient's care discussed in the presence of Assistant County Engineer and Nurse. CONDITION: Stable SCRIBED BY: MARIBELL SHARP Head Of Digital scribed while in presence of service performed by Dr. ROLANDO LAZO on 12/12/16 ([id number])
--- NOTE | 2016-12-12 11:42 | CONS ---
DATE OF SERVICE: 12/11/16 CONSULT FOLLOWUP SUBJECTIVE: The patient is a 81 year old white White male hospitalized with pneumonia and possible left ventricular function. The patient doesn't have any cough or congestion and no symptoms of CHF and no symptoms of CAD. The patient had cardiac cath done two years ago by Dr. Borja with coronary arteries according to the . REVIEW OF SYSTEMS: CONSTITUTIONAL: No night sweats. No fatigue, malaise, lethargy. No fever or chills. This morning he is sitting up and eating his breakfast with the help of his . HEENT: Eyes: No visual changes. No eye pain. No eye discharge. ENT: No runny nose. No epistaxis. No sinus pain. No sore throat. No odynophagia. No ear pain. No congestion. RESPIRATORY: No cough, no congestion. No hemoptysis. CARDIOVASCULAR: No angina symptoms. No CHF symptoms. No atypical chest pain for CAD. No palpitations. No shortness of breath. GASTROINTESTINAL: No abdominal pain. No nausea or vomiting. No diarrhea or constipation. No hematemesis. No hematochezia. GENITOURINARY: No urgency. No frequency. No dysuria. No hematuria. No obstructive symptoms. No discharge. No pain. No significant abnormal bleeding. MUSCULOSKELETAL: No musculoskeletal pain. No joint swelling. No arthritis. NEUROLOGICAL: No headache. No neck pain. No syncope. No seizures. No dizziness. PSYCHIATRIC: Not anxious. No depression. No suicidal thoughts. No homicidal thoughts. SKIN: No rash. No lesions. No wounds. ENDOCRINE: No unexplained weight loss. No weight gain. HEMATOLOGIC/LYMPHATIC: No anemia. No purpura. No petechiae. No prolonged or excessive bleeding. No palpable lymph nodes. PHYSICAL EXAMINATION: GENERAL: The patient is oriented to time, place and person. VITAL SIGNS: Temperature 97, pulse 75, respiratory rate 20, blood pressure 120/ 70 and pulse ox 94%. HEENT: Head normocephalic, atraumatic. Eyes: Extraocular muscles are intact. Pupils are equal, round and reactive to light and accommodation. Ears: No lesions. Nose appeared normal. Throat: No exudate or erythema. NECK: Supple. No JVD, no carotid bruit. No lymphadenopathy or thyromegaly. LUNGS: Decreased breath sounds but clear to auscultation. Percussion note normal. Chest symmetrical. HEART: S1, S2, no S3. No murmurs. No cyanosis or clubbing. No ascites. Pulses: Dorsalis pedis and posterior tibial pulses +1 to +2 both sides. ABDOMEN: Soft. Nontender. Bowel sounds active. No CVA tenderness. No mass felt. EXTREMITIES: No edema. Full range of motion of all extremities, equal. NEUROLOGIC: No focal deficit. Cranial nerves II through XII are grossly intact. No headache, no double vision or headache. SKIN: Not dry. Intact. Turgor - normal. LYMPHATIC: No palpable lymph nodes/no lymphedema. MUSCULOSKELETAL: Normal joints with no swelling. Muscle tone is normal. LABS: Hgb 13, hct 41, WBC 7,500 normal differential, creatinine 2.2, BUN 33, potassium 4.7 and T4 TSH normal. ASSESSMENT: 1. Pneumonia/ Bronchitis 2. Left ventricular function 3. PVC with atrial flutter 4. Dilated Cardiomyopathy RECOMMENDATIONS: 1. This morning the patient's rhythm, is more stable then ever before. The patient is in atrial flutter with rate of 75 per minute with very rare PVC's. It is kind of unusual. 2. The patient's kidney failure is stable CONDITION: Stable MTDD
--- NOTE | 2016-12-12 13:04 | CONS ---
DATE OF SERVICE: 12/10/16 CONSULT FOLLOWUP SUBJECTIVE: The patient is a 81 year old white male hospitalized with respiratory distress with bronchitis and pneumonia type of symptoms, probably had some Congestive heart failure with fluid retention noted with 1+ to 2+ pitting edema and symptoms consistent with Orthopnea. His condition has improved and his is by the side of the patient as usual. REVIEW OF SYSTEMS: CONSTITUTIONAL: No night sweats. No fatigue, malaise, lethargy. No fever or chills. HEENT: Eyes: No visual changes. No eye pain. No eye discharge. ENT: No runny nose. No epistaxis. No sinus pain. No sore throat. No odynophagia. No ear pain. No congestion. RESPIRATORY: No cough, no congestion. No hemoptysis. Feeling a lot better. CARDIOVASCULAR: No angina symptoms. No CHF symptoms. No atypical chest pain for CAD. No palpitations. No shortness of breath. No PND. No orthopnea. GASTROINTESTINAL: No abdominal pain. No nausea or vomiting. No diarrhea or constipation. No hematemesis. No hematochezia. GENITOURINARY: No urgency. No frequency. No dysuria. No hematuria. No obstructive symptoms. No discharge. No pain. No significant abnormal bleeding. MUSCULOSKELETAL: No musculoskeletal pain. No joint swelling. No arthritis. NEUROLOGICAL: No headache. No neck pain. No syncope. No seizures. No dizziness. PSYCHIATRIC: Not anxious. No depression. No suicidal thoughts. No homicidal thoughts. SKIN: No rash. No lesions. No wounds. ENDOCRINE: No unexplained weight loss. No weight gain. HEMATOLOGIC/LYMPHATIC: No anemia. No purpura. No petechiae. No prolonged or excessive bleeding. No palpable lymph nodes. PHYSICAL EXAMINATION: GENERAL: The patient is oriented to time, place and person. VITAL SIGNS: Temperature 96.7, pulse 60, respiratory 24, blood pressure 140/90 and pulse ox 98%. HEENT: Head normocephalic, atraumatic. Eyes: Extraocular muscles are intact. Pupils are equal, round and reactive to light and accommodation. Ears: No lesions. Nose appeared normal. Throat: No exudate or erythema. NECK: Supple. No JVD, no carotid bruit. No lymphadenopathy or thyromegaly. LUNGS: Decreased breath sounds but clear to auscultation. Percussion note normal. Chest symmetrical. HEART: S1, S2, no S3. No murmurs. No cyanosis or clubbing. No ascites. Pulses: Dorsalis pedis and posterior tibial pulses +1 to +2 both sides. ABDOMEN: Soft. Nontender. Bowel sounds active. No CVA tenderness. No mass felt. EXTREMITIES: Trace edema noted. Full range of motion of all extremities, equal. NEUROLOGIC: No focal deficit. Cranial nerves II through XII are grossly intact. No headache, no double vision or headache. SKIN: Not dry. Intact. Turgor - normal. LYMPHATIC: No palpable lymph nodes/no lymphedema. MUSCULOSKELETAL: Normal joints with no swelling. Muscle tone is normal. LABS: hgb 13.5, hct 41, WBC 8,100 normal differential, creatinine 2.1, BUN 32 and potassium 4.7. ASSESSMENT: 1. Pneumonia/ Bronchitis seems to be resolved 2. LVF seems to have been under control 3. Cardiac arrhythmias with Atrial flutter fib with PVC's, bunch branch block 4. Chronic kidney disease 5. Diabetes Mellitus 6. Dilated cardiomyopathy, borderline with LVH and borderline LV cavity RECOMMENDATIONS: 1. Add Coreg 6.25 to stabilize the rhythm, the patient has multiple PVC's which has been patient's arrhythmias for several years according to the patient and the . 2. Discontinue Amlodipine 3. Continue Cozaar and other medications as before CONDITION: Stable. MTDD
--- NOTE | 2016-12-12 14:29 | DI ---
EXAM: Two views of the chest. History: Follow-up pneumonia Comparison: Chest radiograph 12/08/2016, chest CT 12/08/2016 Findings: Heart is enlarged. Persistent small bilateral pleural effusions with adjacent lower lobe relaxation atelectasis slightly improved. No pneumothorax. Atherosclerotic vascular calcification s. Visualized osseous structures unchanged. Impression: Cardiomegaly with small bilateral pleural effusions and persistent but improving bibasi lar atelectasis or infiltrates.
--- NOTE | 2016-12-12 15:10 | HP ---
DATE OF ADMISSION: 12/08/16 CHIEF COMPLAINT: Cough and shortness of breath SOURCE OF HISTORY: The patient and HISTORY OF PRESENT ILLNESS: The patient for last several days has been coughing somewhat dry. The patient also had noted some increasing shortness of breath. He did see the skiver counter at 12/07/16 and the Lisinopril was discontinued and replaced with Losartan because of the cough. The patient presented to this emergency room because of the increasing shortness of breath and persistent cough. During the course of the work up the patient was found to have a pneumonic processes and was then admitted. X-ray was interpreted as these findings consistent with right sided pneumonia and pleural effusion. CT chest was done without contrast and bilateral ground glass infiltrate maybe representing pneumonia or edema, left renal atrophy small to moderate bilateral pleural effusion. CBC showed mild anemia with EGF 26, BUN 28 and creatinine 2.44. CK was elevated and MB 4.7, BNP 1610. The patient however has chronic kidney disease stage four and maybe contributing to this elevated number. Procalcitonin 0.05. PAST PERSONAL HISTORY: The patient has been hypertensive for some times Congestive heart failure complicated with the jose inhibitor for some time. 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 Kids are grown. 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 MEDICATIONS: Vitamin D 50,000 units monthly Vitamin B12 plus Folic acid two tablets daily Tradjenta 5mg tablet daily Eliquis 5mg twice a day Hydrochlorothiazide 12.5mg tablet daily Aspirin 81mg daily Amlodipine 2.5mg daily Flonase nasal two sprays to each nostril once or twice a day Losartan 100mg daily began yesterday; the patient prior to that was on Lisinopril. ALLERGIES: No known drug allergies. REVIEW OF SYSTEMS: CONSTITUTIONAL: The patient has no fever and no chills but fatigued MANAGER FEDERAL: No headaches. No loss of consciousness. No ataxia VISUAL: Denies any blurred vision, double vision or transient loss of vision AUDITORY: Hearing is decreased. No tinnitus. No pain and No drainage. RESPIRATORY: The patient has cough, non productive with shortness of breath. CARDIOVASCULAR: The patient denies any chest pain or chest tightness but has shortness of breath with exertion and increasing. GASTROINTESTINAL: Appetite has decreased during this episode. The patient continued to work until he presented to the emergency room. GENITOURINARY: The patient denies any pain on urination. MUSCULOSKELETAL: No significant joint pains. He is still very functional for his age. ENDOCRINE: No polyuria or polydipsia although he is known to have type 2 diabetes mellitus INTEGUMENT: No rash or pleuritis HEMATOLOGIC: No history of prolonged bleeding or spontaneous ecchymosis. PSYCHIATRIC: Affect is normal. PHYSICAL EXAMINATION: GENERAL: The patient is a 81 year old male is alert and oriented times four with some tachypnea at times. Tachypnea on slight exertion mainly because of pneumonia. VITAL SIGNS: Temperature 97.3, pulse 78, blood pressure 128/70 and respiratory rate 20. The patient weighed initially at 185 and on 12/08/16 was 177 pounds and 12.8 ounces. HEAD: Unremarkable FACE: Symmetrical and equal with no facial weakness. There is no remarkable tenderness to palpation under pressure in the frontal maxillary sinus areas. EYES: Pupils equal/reactive to light. Conjunctivae slightly pale. Sclerae not icteric. MOUTH: Unremarkable THROAT: No inflammation, tumors or exudate. NECK: No masses. No bruit. No tenderness. No rigidity. There is no venous jugular distention at supine posterior. CHEST: Symmetrical and equal with good expansion. LUNGS: Breath sounds are diminished in both sides more on the left then the right. Minimal wheeze. There are some rales on the left base. HEART: Audible and irregular with good tones. No murmurs. ABDOMEN: Soft with no remarkable tenderness. No guarding. Bowel sounds are active and no masses palpable. EXTERNAL GENITALIA: Not examined RECTAL: Not performed LOWER EXTREMITIES: Edematous, more on the right side with varicosities UPPER EXTREMITIES: Symmetrical and equal. ASSESSMENT: 1. Pneumonitis, bilateral 2. Pleural effusion 3. Congestive heart failure, probable 4. Hypertension 5. Chronic kidney disease, stage 4 6. Atrial fibrillation 7. Type 2 Diabetes Mellitus 8. Bilateral leg edema right more than left sided, maybe secondary to congestive heart failure plus renal problem and venous insufficiency MTDD
[2016-12-13 04:34] LABS: BASOPHILS # (AUTO) 0.1 K/uL (0-0.2); BASOPHILS % (AUTO) 0.9 % (0.0-3.0); EOSINOPHILS # (AUTO) 0.2 K/ul (0.0-0.7); EOSINOPHILS % (AUTO) 2.9 % (0.0-7.0); HEMATOCRIT 39.1 % (42.0-52.0); HEMOGLOBIN 12.9 g/dl (14.0-18.0); IMMATURE GRANULOCYTE % (AUTO) 0.7 % (0.0-5.0); LYMPHOCYTES # (AUTO) 1.4 K/uL (0.60-3.4); LYMPHOCYTES % (AUTO) 25.4 (10.0-50.0); MEAN CORPUSCULAR HEMOGLOBIN 30.9 pg (27.0-31.0); MEAN CORPUSCULAR VOLUME 93.5 fl (80.0-94.0); MONOCYTES # (AUTO) 0.6 K/uL (0.4-2.0); MONOCYTES % (AUTO) 10.3 (0-10); NEUTROPHILS # (AUTO) 3.3 K/ul (2.0-6.9); NEUTROPHILS % (AUTO) 59.8; PLATELET COUNT 116 10^3/uL (140-440); RED BLOOD COUNT 4.18 10^6/ul (4.70-6.10); WHITE BLOOD COUNT 5.52 K/ul (4.2-10.2)
[2016-12-13 05:02] LABS: ALBUMIN/GLOBULIN RATIO 0.94; ANION GAP 11.4; BILIRUBIN,TOTAL 0.52 mg/dL (0.00-1.20); BUN/CREATININE RATIO 13.36; CALCIUM 9.6 mg/dL (8.2-10.2); CREATININE 2.02 mg/dL (0.60-1.10); POTASSIUM 4.4 mmol/L (3.5-5.1); TOTAL PROTEIN 6.2 g/dL (5.8-8.1)
[2016-12-13] MEDS: TRADJENTA PO SCH (06:05)
[2016-12-13] MEDS: LASIX TAB PO SCH (06:05)
[2016-12-13] MEDS: ROCEPHIN 1 GM in SODIUM CHLORIDE 100 ML IV SCH (08:19)
[2016-12-13] MEDS: ELIQUIS PO SCH (08:23)
[2016-12-13] MEDS: FLONASE NAS SCH (08:23)
[2016-12-13] MEDS: NORVASC PO SCH (08:23)
[2016-12-13] MEDS: ASPIRIN CHEWABLE PO SCH (08:25)
[2016-12-13] MEDS: ENTRESTO 24 MG-26 MG TABLET PO SCH (08:26)
[2016-12-13] MEDS: [UNRECOGNIZED DRUG - OTHER] PO SCH (08:28)
[2016-12-13] MEDS: FOLIC ACID PO SCH (08:28)
[2016-12-13] MEDS: CYANOCOBALAMIN PO SCH (08:28)
--- NOTE | 2016-12-13 10:07 | PN ---
DATE OF VISIT: 12/09/16 The patient is alert and somewhat feeling better, but the breath sounds are still diminished, left more than right. No wheezing. The patient's echocardiogram showed ejection fraction between 40 to 45. This patient may be a good candidate for Entresto and had mentioned that in passing to Dr. Jesus, Set Up Inspector. He didn't seem to have any objection. I would look and Entresto. The patient's medications for diabetes can be changed or an additional medication, such as Trulicity. The patient's Linagliptin doesn't seem to be working very well. The blood sugar elevation could be driven partly by the infection. This patient may not have enough Incretin already in the system and even a few ------enzymes that stabilizes the Incretin that there is probably still not enough left. We will see what the sugar is, as well as the A1C. [facility]
--- NOTE | 2016-12-13 10:11 | PN ---
DATE OF VISIT: 12/10/16 The patient is alert and feeling better and is wanting to go home. I told him that he is not ready to go home. LUNGS: The lungs have better air exchange and no wheezing. HEART: Audible and irregular. We will repeat the BNP tomorrow and see if that has reduced in number. We will also get an A1C, as well as a fasting plasma C-peptide level and KELECHI 65 autoantibody to see if he still is a type II diabetic patient. POLO
[2016-12-13] MEDS ORDERED: AVELOX PO SCH (11:00)
--- NOTE | 2016-12-13 11:03 | PN ---
DATE OF VISIT: 12/09/16 The patient, today, is alert with no distress at rest with 2 liters of nasal oxygen. VITAL SIGNS: Temperature at 5:33 p.m. showed 96.3, pulse 73, blood pressure 145 /79, respiratory rate 20, oxygen saturation 98 at 2 liters. GENERAL: Color is good. He gets dyspneic and slightly tachypneic with some exertion. No significant venous distention at about 15 degree head elevation. LUNGS: Diminished breath sounds more on the left side with some rales. No significant wheezing. HEART: Audible and regular, but not tachycardiac. ABDOMEN: Soft with no remarkable tenderness. LOWER EXTREMITIES: Bilateral leg edema, left more than right. The patient has some varicosities. Doppler studies were negative for any venous thrombosis. The chest CT was reviewed and he does show small to moderate bilateral pleural effusion. Left renal atrophy. MTDD
--- NOTE | 2016-12-13 11:08 | PN ---
DATE OF VISIT: 12/10/2016 The patient is doing better. VITAL SIGNS: At 5:28 p.m. showed a temperature 97.5, pulse 76, blood pressure 135/84, respiratory rate 20, oxygen saturation 97 on 2 liters per nasal. LUNGS: Breath sounds are heard better than yesterday and no wheezing. HEART: Still irregular, but the patient is known to have atrial fibrillation and is on anticoagulation medication for the problem. He denies any chest pain or abdominal pain today. He denies any blood in the urine or stool. He is wanting to known when he can go home. I told him that we need to wait a little bit longer. KOBID
--- NOTE | 2016-12-13 11:15 | PN ---
DATE OF VISIT: 12/11/2016 The patient is alert, oriented times four and cheerful. He was sitting when I walked into the room with his in the room. He seemed antsy to go home. He is not dyspneic, nor tachypneic. He denies any chest pain or abdominal pain. VITAL SIGNS: Temperature at 5:37 p.m. was 97.9, pulse 60, blood pressure 130/66 , respiratory rate 18, oxygen saturation 95 at 2 liters. GENERAL APPEARANCE: Good. No cyanosis. LUNGS: Breath sounds are heard better on both lung haney. No expiratory wheezing. HEART: Audible and regular with good tones. ABDOMEN: Nontender. LOWER EXTREMITIES: Still edematous, but the left is much bigger than the right. Doppler studies done yesterday were negative for DVT. MTDD
--- NOTE | 2016-12-13 12:02 | PN ---
DATE OF VISIT: 12/12/16 The patient is alert and oriented times four. The swelling in both lower extremities has decreased. The right leg is still bigger than the left side. He claims that he feels good and no shortness of breath as compared to admission. VITAL SIGNS: At 10 a.m. showed a temperature of 97.9, pulse 70, blood pressure 107/82, respiratory rate 20, oxygen saturation 98 at 2 Liters. HEART: Audible and irregular, but not tachycardic. LUNGS: Better air exchange. This patient was placed on Entresto twice a day and the Losartan was discontinued. Cardiomegaly with small bilateral pleural effusion and improving bibasilar atelectasis or infiltrates. This patient will be tried on no oxygen before discharging him home. He would need to continue his medications at home. He is also advised to take it easy. 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 I asked him to drink as much water as he can. I would like his BUN to get down to normal and see what the E GFR would be at that point. His BUN on admission was 28, next day 31, next day 32, next day 33 and now down to 31 on 12/12/2016. His creatinine was 2.44, 2.46, 2.10, 2.20 and 2.14. The E GFR is 26, 26, 31, 29, 30. I am interested to see what the creatinine will be, as well as the GFR with a BUN between 7 to 18. MTDD
--- NOTE | 2016-12-13 12:52 | CONS ---
DATE OF CONSULTATION: 12/08/16 REASON FOR CONSULTATION: Pneumonia, shortness of breathing and possibility of atrial fibrillation with PVC on occasional sinus beats with atrial fibrillation. HISTORY OF PRESENT ILLNESS: The patient is a 81 year old white male hospitalized from the emergency room with complaint of having cough, congestion, shortness of breath. The patient has history of heart disease. He underwent cardiac catheterization by Dr. Borja which according to the was reported as no blocked arteries. The patient's EKG reviewed which showed a couple of sinus beats with runs of PAT or atrial fibrillation with PVC's. The patient's other problems of chronic kidney disease for which has been seeing the junior architect. He also has 1+ to 2+ pitting edema which is more or less chronic according to the family. Other things noted on this patient after reviewing the chart is blood sugar 216. REVIEW OF SYSTEMS: CONSTITUTIONAL: No night sweats. Fatigued. No fever or chills. HEENT: Eyes: No visual changes. No eye pain. No eye discharge. ENT: No runny nose. No epistaxis. No sinus pain. No sore throat. No odynophagia. No ear pain. No congestion. RESPIRATORY: No cough, no congestion. No hemoptysis. CARDIOVASCULAR: No angina symptoms. No CHF symptoms. No atypical chest pain for CAD. No palpitations. Shortness of breath with exertion. GASTROINTESTINAL: No abdominal pain. No nausea or vomiting. No diarrhea or constipation. No hematemesis. No hematochezia. Appetite has decreased. GENITOURINARY: No urgency. No frequency. No dysuria. No hematuria. No obstructive symptoms. No discharge. No pain. No significant abnormal bleeding. MUSCULOSKELETAL: No musculoskeletal pain. No joint swelling. NEUROLOGICAL: No headache. No neck pain. No syncope. No seizures. No dizziness. PSYCHIATRIC: Not anxious. No depression. No suicidal thoughts. No homicidal thoughts. SKIN: No rash. No lesions. No wounds. ENDOCRINE: No unexplained weight loss. No weight gain. HEMATOLOGIC/LYMPHATIC: No anemia. No purpura. No petechiae. No prolonged or excessive bleeding. No palpable lymph nodes. MEDICATIONS: Tradjenta Eliquis Hydrochlorothiazide Amlodipine Aspirin Losartan ALLERGIES: No known allergies. PAST MEDICAL HISTORY: Hypertension Congestive heart failure Type 2 Diabetes Mellitus Chronic kidney disease stage 3-4 PAST SURGICAL HISTORY: Circumcision, 2013 Multiple myeloma, smoldering Cardiac catheterization Colonoscopy SOCIAL/PERSONAL/FAMILY HISTORY: The patient is and resides with his . Family history is significant for the COPD and Heart problems. PHYSICAL EXAMINATION: GENERAL: The patient doesn't seem to be in distress. VITAL SIGNS: Temperature 97.2, pulse 74, respiratory rate 24, blood pressure 135 /83 and pulse ox 96% HEENT: Head normocephalic, atraumatic. Eyes: Extraocular muscles are intact. Pupils are equal, round and reactive to light and accommodation. Ears: No lesions. Nose appeared normal. Throat: No exudate or erythema. NECK: Supple. No JVD, no carotid bruit. No lymphadenopathy or thyromegaly. LUNGS: Decreased breath sounds with few crepes at bases. Percussion note normal. Chest symmetrical. HEART: S1, S2 irregular, no S3. No murmurs. No cyanosis or clubbing. No ascites. Pulses: Dorsalis pedis and posterior tibial pulses +1 to +2 both sides. ABDOMEN: Soft. Nontender. Bowel sounds active. No CVA tenderness. No mass felt. EXTREMITIES: 2+ pitting edema. Full range of motion of all extremities, equal. NEUROLOGIC: No focal deficit. Cranial nerves II through XII are grossly intact. No headache, no double vision or headache. SKIN: Not dry. Intact. Turgor - normal. LYMPHATIC: No palpable lymph nodes/no lymphedema. MUSCULOSKELETAL: Normal joints with no swelling. Muscle tone is normal. LABS: The patient had an echocardiogram done today by me which showed hypoclynetic left ventricle with borderline LV cavity enlargement with enlarged LA cavity and valves are normal, ejection fraction is 40-45%. The patient's BNP is 1610. Chest x-ray showed possible pneumonia with small effusion. ASSESSMENT: 1. Acute bronchitis with chronic lung disease 2. Atrial fibrillation versus paroxysmal atrial fibrillation with PVC's 3. Chronic kidney failure 4. Diabetes mellitus 5. Hypertension RECOMMENDATION: 1. Will give 20mg of IV Lasix 2. Discontinue Hydrochlorothiazide because it isn't going to work because of his kidney failure. 3. 1/2 cc Decadron for mild wheezing 4. Continue the rest of the medications. CONDITION: Stable. MTDD
--- NOTE | 2016-12-13 13:46 | PN ---
The patient has been seen 3-4 times. The last time the patient was seen was 11/25. It was consult from Dr. Lugo. POLO
[2016-12-13 18:20] VITALS: BP 128/62; TEMP 97.8
--- NOTE | 2017-01-25 13:27 | DS ---
PATIENT IDENTIFICATION: 81-year-old male was seen in the emergency room on 12/08/16 because of cough, somewhat dry with shortness of breath more so at night and when assuming the supine posture. The patient was noted to have right lower lobe pneumonitis on chest x-ray and subsequent CT without contrast showed bilateral ground glass infiltrate probably pneumonitis or edema. The patient also had elevated CK-MB 4.7, BNP 1,610. The patient has chronic kidney disease, Stage 4 which may have contributed to the elevated BNP. Procalcitonin in the emergency room is normal 0.05. The patient's previous illness consisted of hypertension, congestive heart failure for 70 years, controlled with NAV as well as Hydrochlorothiazide. He also had multiple myeloma smoldering. The patient has atrial fibrillation with premature ventricular contraction. HOSPITAL COURSE: The patient is alert, has good color. He denies any chest pain. Neck is unremarkable. Chest has diminished breath sounds left more than right with minimal wheezing. Rales at the left base. Edematous legs, more on the right side with some varicosities. The right had always been bigger according to the patient. The patient, while in the hospital, was seen by juice weigher. Dr. Jesus. He had changed the medications, discontinued Amlodipine and added Coreg to help with the PVCs. The patient initially weighed 185 pounds. The patient's workup during this hospitalization consisted of serial CBC showing mild to moderate anemia, serial CMP showing persistent AGFR 26 on admission, 32 on discharge, BUN elevated and remained elevated although slightly lower on discharge and creatinine was also elevated and lower on discharge. Repeat BNP is slightly lower than initial, 1,549. Sugar was elevated initially but moderated in the next few hospital days ranging from 142 to 156. The patient had chest x-ray at 12/08/16. CT chest noncontrast on the same day, Venous Doppler both lower extremities negative for DVT done 12/09/16. Chest x-ray before discharge one day before showed cardiomegaly with small bilateral pleural effusion, persistent but improving bilateral atelectasus or pneumonia. The patient's vital signs remained stable and he remained afebrile throughout this hospital stay. The patient at time of discharge was alert, ambulatory, denies any chest pain and claims to be better. Lungs have better air exchange, stronger breath sounds , some rales at the left base, no wheezing. Heart is audible and irregular but not tachycardic. The patient was prescribed Entresto, the lowest dose because of kidney disease. His left AGFR prior to discharge was 32. Ejection fraction is between 40 to 45. I did explain to the patient as well as his that this medication hopefully would work for him since it is known to have increased some of the longevity for the patient taking the medication on trial. He had been off the Lisinopril for several days now. He was placed on Losartan so the Losartan was discontinued and replaced with Entresto. The patient may resume his diet, no added salt, continue home medications except the Losartan since it is already in the Sacubitril. He may exercise daily or several times a day to toleration. He should see me in about one week or before if there is any problem. FINAL DIAGNOSES: 1. BILATERAL LOWER LOBE PNEUMONITIS IMPROVING 2. CONGESTIVE HEART FAILURE, STABLE 3. LOW EJECTION FRACTION, LEFT VENTRICULAR, 44/45 4. CHRONIC KIDNEY DISEASE, STAGE 3 TO 4, AGFR 32 5. MILD TO MODERATE ANEMIA PROBABLY SECONDARY TO CHRONIC KIDNEY DISEASE 6. HYPERTENSION 7. TYPE 2 DIABETES MELLITUS 8. BILATERAL LEG EDEMA, RIGHT MORE THAN LEFT SIDE, SEEMED TO BE LESS PROGNOSIS: Guarded MTDD
== END 2016-12-13 19:15 | disposition home or self-care (01) | DRG 194 ==
LOC: ED 07:47 → MEDSURG B 10:11
PROVIDERS: ADMIT General Practice; ATTEND General Practice
DX: J18.1 Lobar pneumonia, unspecified organism (principal); I42.0 Dilated cardiomyopathy; R06.01 Orthopnea; I12.9 Hypertensive chronic kidney disease with stage 1 through stage 4 chronic kidney disease, or unspecified chronic kidney disease; N18.3 Chronic kidney disease, stage 3 (moderate); N18.2 Chronic kidney disease, stage 2 (mild); I50.9 Heart failure, unspecified; I10 Essential (primary) hypertension; R60.0 Localized edema; I05.9 Rheumatic mitral valve disease, unspecified; D64.9 Anemia, unspecified; E11.9 Type 2 diabetes mellitus without complications; I48.91 Unspecified atrial fibrillation; I48.0 Paroxysmal atrial fibrillation; I49.3 Ventricular premature depolarization; Z79.01 Long term (current) use of anticoagulants; Z79.899 Other long term (current) drug therapy
CPT/HCPCS: 36415; 80053; 80061; 82550; 82553; 82962; 83036; 83519; 83525; 83880; 84145; 84439; 84443; 84484; 84681; 85025; 85379; 86631; 86632; 86738; 87040; 87070; 87186; 93005; 93010; 96365; 99223; 99231; 99232; 99239; 99284

== ENCOUNTER 2016-12-20 12:01 | Outpatient (CLI) ==
--- NOTE | 2016-12-20 13:01 | DI ---
EXAM: Two x-rays of the chest. Comparison: 12/12/2016. Reason for exam: Pneumonia. FINDINGS: No pneumothorax or pleural effusion. The cardiac silhouette remains prominent in size bu t not significantly changed from the previous exam. The imaged osseous structures are unremarkable without evidence of displaced fracture. There is blunting of the right costophrenic angle likely atelectasis or pneumonia. Impression: Cardiomegaly with blunting of the right costophrenic angle likely atelectasis or pneumo garry. The previously described left lower lobe infiltrates are significantly improved on today's nadiraa jose.
== END 2016-12-20 12:02 | disposition home or self-care (01) ==
LOC: RAD 12:01
PROVIDERS: ATTEND General Practice
DX: J18.9 Pneumonia, unspecified organism (principal)

== ENCOUNTER 2016-12-28 12:58 | Outpatient (CLI) ==
[2016-12-28 13:30] LABS: ALBUMIN 3.8 g/dL (3.4-5.0); ANION GAP 16.5; BUN/CREATININE RATIO 11.86; CALCIUM 9.9 mg/dL (8.2-10.2); CREATININE 2.36 mg/dL (0.60-1.10); PHOSPHORUS 3.2 mg/dL (2.3-3.7); POTASSIUM 4.5 mmol/L (3.5-5.1)
== END 2016-12-28 12:59 | disposition home or self-care (01) ==
LOC: LAB 12:58
PROVIDERS: ATTEND General Practice
DX: Z79.899 Other long term (current) drug therapy (principal)
CPT/HCPCS: 36415; 80069

== ENCOUNTER 2017-01-03 11:54 | Outpatient (CLI) ==
[2017-01-03 13:17] LABS: ALBUMIN 3.9 g/dL (3.4-5.0); ANION GAP 17.6; BUN/CREATININE RATIO 12.85; CALCIUM 10.3 mg/dL (8.2-10.2); CREATININE 2.49 mg/dL (0.60-1.10); PHOSPHORUS 3.3 mg/dL (2.3-3.7); POTASSIUM 4.6 mmol/L (3.5-5.1)
== END 2017-01-03 11:55 | disposition home or self-care (01) ==
LOC: LAB 11:54
PROVIDERS: ATTEND General Practice
DX: I50.9 Heart failure, unspecified (principal); E11.9 Type 2 diabetes mellitus without complications; N18.3 Chronic kidney disease, stage 3 (moderate)
CPT/HCPCS: 36415; 80069; 83880

== ENCOUNTER 2017-01-04 02:37 | Outpatient (CLI) | END 2017-01-04 02:38 | disposition home or self-care (01) | LOC: AMBL 02:37 | PROVIDERS: ATTEND Internal Medicine Geriatric Medicine ==